=== PATIENT | male | born 1950 | race Native Hawaiian/Other Pacific Islander ===

== ENCOUNTER 2024-06-08 05:57 | Day surgery (SDC) | payer MEDICARE, SELFPAY ==
[2024-05-28 13:01] VITALS: BMI 27.6
[2024-06-08] VITALS (25 sets, daily range): BP systolic 110–139; BP diastolic 65–95; BMI 27.2
[2024-06-08] MEDS: TYLENOL 1000 MG PO (07:29)
[2024-06-08 08:56] LABS: ACT-LR - POC 258 Seconds (116-155)
[2024-06-08 09:13] LABS: ACT-LR - POC 258 Seconds (116-155)
[2024-06-08] MEDS: ZOFRAN 4 MG IV (10:14)
--- NOTE | 2024-06-08 10:22 | ITS.CL.ABL ---
[employer] - Ablation
Ablation
Procedure Report:
ELECTROPHYSIOLOGY ABLATION STUDY
�
DATE:: June 08, 2024�����������������������������REFERRING: Dr. Molina Durbin
�
INDICATION: Paroxysmal supraventricular tachycardia in the form of atrial fibrillation.��As above
�
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 He was initiated immediately on blood thinner for the last 4 weeks and received a CT scan
on 28 May which demonstrated no left atrial appendage thrombus. Given his neurologic symptoms we did delay procedure for approximately 4 weeks to allow cerebral healing. He also has a history of urinary bleeding status post TURP x 2 with
laser. On current anticoagulation he did not have hematuria over the last 4 weeks.
�
ANTIARRHYTHMIC DRUG: As above
�
PRE-PROCEDURE YANY: No atrial thrombus
�
PRESENTING RHYTHM: Atrial fibrillation
�
'TIME-OUT':��called and confirmed.
�
SEDATION/ANESTHESIA:��provided via the anesthesia department using general anesthesia (LMA).
�
INTRAVENOUS/ARTERIAL ACCESS:
Right femoral venous -8 Albanian
Left femoral venous - 8 Fr, 6 Fr
Nepxke-yl-[id number] suture to each femoral vein
Ultrasound guidance for bilateral femoral vein access was utilized by me to obtain access with demonstration of normal anatomy
CHADS-VASC Score:
�
HAS-Bled Score
�
PROCEDURE:
1.��A decapolar CS catheter was placed within the CS for mapping and pacing.��This was also used as the reference catheter for the 3-D map.
�
2. The intracardiac ultrasound catheter was positioned in the RA to identify the FO for targeting of transseptal puncture, assist��in identification of the pulmonary vein ostia, monitoring pre and post ablation pulmonary vein flow velocities,
monitoring for 'bubble' formation during RF application as a sign of thermal injury,��and to monitor for pericardial effusion during mapping and ablation procedure.���Left atrial size, LV ejection fraction, and pulmonary vein flows were monitored
pre and post ablation procedure. The other valves were inspected and found to be free of significant regurgitation or stenosis.
�
3.��Half of the calculated heparin bolus was administered prior to the first transeptal puncture.��Transseptal puncture was performed to diagnose RA and LA pressure so that safetey of LA mapping and ablation could be further assessed, and to access
the left atrium and pulmonary veins for mapping and ablation.��This entailed advancing an 16 Albanian sheath with dilator and RF needle apparatus was advanced into the superior vena cava and withdrawing both (monitoring intracardiac ultrasound,
fluoroscopy and tip pressure) with the tip oriented toward the atrial septum.��The fossa ovalis was engaged (indicated by sudden displacement of the sheath tip as well as tenting of the fossa seen on intracardiac ultrasound).��Left atrial access
required a pass with the [place]rough needle extended.��Left atrial catheter position was confirmed by pressure monitoring (RA mean pressure 8 mm Hg and LA mean presure 14 mm Hg), LA saturation (99%),��as well as fluoroscopy.��The sheath was
advanced over the dilator and positioned in the left atrium.��The remainder of the calculated heparin bolus was administered and heparin was
infused to maintain ACT at 300 -350 seconds throughout the case.
�
4.��RA pacing was performed via the proximal decapolar poles and LA pacing was performed via the distal decapolr poles.
�
5. A quadrapolar catheter was first positioned at the His position for His Bundle recording which was tagged via the 3-D Navex sytem, and then passed to the RVA for RV pacing and recording.
�
6. The ablation catheter was positioned through one of the transeptal seaths and a 20 pole ring mapping catheter was positioned through the second seath into the LA and then the ostia of the LIPV, LSPV, RSPV and the RIPV.��
�
7.��Next, a 3-D map was created using Navex.���A 3-D reconstructed CT image was compared to the 3-D Navex map to assist in anatomic interpretation, mapping and ablation.��The CT image and the NavX image were fused.
�
8. A total of 50 lesions were given to the left atrium and left atrial posterior wall. 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 Cristiane post to the posterior
wall. [place] and basket poses were given to the other pulmonary veins. Patient was in sinus rhythm in the 50s post procedure. 0.1 mg of glycopyrrolate was given to minimize pausing. The patient did have some junctional rhythm post initial
ablation lesions to the left pulmonary veins. 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
�
9. Normal sinus node and AV jaime function were noted. Basic cycle length of 1200 ms was noted.
TOTAL FLOURO TIME: 14.7 minutes 223 mGy
�
TOTAL RF DURATION: 0 minutes
�
REVERSAL OF HEPARIN: 35 mg of protamine, slow IV administration
�
COMPLICATIONS:
None
Intracardiac US shows no pericardial effusion post ablation.
�
SUMMARY:��
Complex left atrial mapping and ablation.
Isolation of all 4 pulmonary veins and left atrial posterior wall as above
�
RECOMMENDATIONS:
1. Ambulate in 4 hours
2. Resume Eliquis 5 mg twice daily for minimum of 1 month although ideally 3 months. We do long discussion regarding long-term oral anticoagulation options including full dose Eliquis, half dose Eliquis, Linq guided withdrawal of oral
anticoagulation and watchman. His recent neurologic event makes each decision where they have discussion given pros and cons to each strategy. I did have preliminary discussions with patient as well as his and daughter post procedure.
3.��Consider same-day discharge
4.��Discussed plan of care with Dr. Durbin by phone post procedure
�
Copy to: Dr. Molina Durbin
�
--- NOTE | 2024-06-08 14:12 | W.PN.UPDATE ---
Update Note
Progress Note Update
74 yo WM s/p PVI (same day). He denies cp, sob, chandler diet, voiding, EKG SB 1deg AVB, b/l groins c/d/i no HT, soft. He will continue OAC Eliquis. Activity restrictions reviewed. He will f/u [employer] in 2 weeks. He is for d/c home after 230p.
SUMMARY:��
Complex left atrial mapping and ablation.
Isolation of all 4 pulmonary veins and left atrial posterior wall as above
�
RECOMMENDATIONS:
1. Ambulate in 4 hours
2. Resume Eliquis 5 mg twice daily for minimum of 1 month although ideally 3 months. We do long discussion regarding long-term oral anticoagulation options including full dose Eliquis, half dose Eliquis, Linq guided withdrawal of oral
anticoagulation and watchman. His recent neurologic event makes each decision where they have discussion given pros and cons to each strategy. I did have preliminary discussions with patient as well as his and daughter post procedure.
3.��Consider same-day discharge
4.��Discussed plan of care with Dr. Durbin by phone post procedure
�
Copy to: Dr. Molina Durbin
== END 2024-06-08 17:30 | disposition home or self-care (01) ==
LOC: CATH 05:57
PROVIDERS: ATTENDING PHYSICIAN Internal Medicine Cardiovascular Disease; REFERRING PHYSICIAN Internal Medicine Cardiovascular Disease
DX: I48.0 Paroxysmal atrial fibrillation (principal); R41.0 Disorientation, unspecified; Z86.73 Personal history of transient ischemic attack (TIA), and cerebral infarction without residual deficits; Z88.8 Allergy status to other drugs, medicaments and biological substances; Z79.01 Long term (current) use of anticoagulants; Z88.2 Allergy status to sulfonamides; Z79.899 Other long term (current) drug therapy
CPT/HCPCS: C1732; C1894; C1730; C1769; C1892; C1759; 85347; 86900; 86901; 93005; 93656; 93657; C1733; C1766